=== PATIENT | female | born 2000 | race Caucasian/White ===

== ENCOUNTER → 2023-09-14 | Outpatient (CLI) | payer MEDICAID ==
--- NOTE | 2023-09-15 14:43 | US ---
EXAMINATION TYPE: US OB anatomy transabd DATE OF EXAM: 09/14/2023 COMPARISON: NONE CLINICAL INDICATION: Female, 23 years old with history of O36.62X0 MATERNAL CARE FOR EXCESS WINSOME WTH, SE; LGA TECHNIQUE: Transabdominal (TA) EXAM MEASUREMENTS: GESTATIONAL AGE / DATING Physician Established: (18 weeks/6 days) EDC: 02/09/24 Dates by LMP: LMP unknown Dates by First Scan: no prior here Dates by Current Scan for: (18 weeks/5 days) EDC: 02/10/24 SURVEY IUP: Single PLACENTA: Posterior PREVIA: No previa HARI: 12.2 cm Normal CERVICAL LENGTH (transabdominal: norm > 3.0cm): 4.6 cm BIOMETRY PRESENTATION: Breech LIE: Longitudinal BPD: 3.9 cm 18 weeks / 0 days HC: 15.2 cm 18 weeks / 2 days AC: 13.6 cm 19 weeks / 1 days FL: 3.0 cm 19 weeks / 2 days ESTIMATED WEIGHT IN GRAMS: 269 grams ESTIMATED WEIGHT IN LBS/OZ: 0 lbs. 9 oz. WEIGHT PERCENTAGE BASED ON ESTABLISHED DATE: 55 % HC/AC: 1.12 Normal FL/AC: 22% HEART RATE: 134 bpm RHYTHM: Normal ANATOMY SEEN (within normal limits): Cisterna Magna (< 1.1 cm) 0.3 cm Nuchal Fold (< 0.6 cm) 0.3 cm Cerebellum (varies with age) 1.7 cm Choroid Plexus (bilateral) Midline Falx Cavus Septi Pellucidi Outflow tracts: RVOT Stomach Situs Nose / Lips Diaphragm Kidneys (bilateral) Bladder Cord Insert Three Vessel Cord Longitudinal Spine Transverse Spine Arms (bilateral) Legs (bilateral) ANATOMY SUBOPTIMAL Outflow tracts: LVOT Lateral Vent (< 1 cm) 0.6 cm (measured anteriorly) ANATOMY ABNORMAL Four Chamber Heart - A couple echogenic intracardiac foci are noted. IMPRESSION: 1. Single live intrauterine with established gestational age of 18 weeks 6 days. Current ul trasound biometry is concordant (18 weeks 5 days) placing the child at the 55th percentile for weight . 2. A couple structures on the survey were suboptimally visualized including the LVOT and latera l ventricle. Recommend rescan in 1 to 2 weeks. 3. In addition, cardiac EIF are noted. These can be a soft marker for aneuploidy. Consider genetics consultation for a discussion of the questionable clinical significance, especially as an isolated fi nding.
== END | disposition home or self-care (01) ==
LOC: RADUSWWP 12:05
PROVIDERS: ATTEND Obstetrics & Gynecology
DX: O36.62X0 Maternal care for excessive fetal growth, second trimester, not applicable or unspecified (principal); Z3A.19 19 weeks gestation of pregnancy
CPT/HCPCS: 76811

== ENCOUNTER → 2024-01-11 | Outpatient (CLI) | payer MEDICAID ==
--- NOTE | 2024-01-11 13:20 | US ---
EXAMINATION TYPE: US OB >= 14 wk fetus DATE OF EXAM: 01/11/2024 COMPARISON: None CLINICAL INDICATION: Female, 23 years old with history of O36.5930 MATERN CARE FOR OTH OR SUSP POOR F ETL GRT; position TECHNIQUE: Transabdominal (TA) GESTATIONAL AGE / DATING Physician Established: (35 weeks/6 days) EDC: 02/09/24 Dates by LMP: LMP unknown Dates by First Scan: (35 weeks/5 days) EDC: 02/10/24 Dates by Current Scan: (36 weeks/1 days) EDC: 02/09/24 Beta HCG (if available): Not available at this time SURVEY IUP: Single PLACENTA: Posterior PREVIA: No Previa HARI: 11.0 cm Normal CERVICAL LENGTH (transabdominal: norm > 3.0cm): 3.4 cm BIOMETRY PRESENTATION: Vertex LIE: Longitudinal BPD: 8.8 cm 35 weeks / 4 days HC: 33.0 cm 37 weeks / 4 days AC: 32.0 cm 36 weeks / 0 days FL: 6.8 cm 35 weeks / 1 days ESTIMATED WEIGHT IN GRAMS: 2776 grams ESTIMATED WEIGHT IN LBS/OZ: 6 lbs. 2 oz. WEIGHT PERCENTAGE BASED ON ESTABLISHED DATES: 49% HC/AC: 1.03 Normal FL/AC: 21 Normal HEART RATE: 146 bpm RHYTHM: Normal cervix eval limited by low lying head IMPRESSION: Ultrasound age 36 weeks and 1 day. Additional information as described above.
== END | disposition home or self-care (01) ==
LOC: RADUSWWP 12:21
PROVIDERS: ATTEND Obstetrics & Gynecology
DX: O36.5930 Maternal care for other known or suspected poor fetal growth, third trimester, not applicable or unspecified (principal); Z3A.37 37 weeks gestation of pregnancy
CPT/HCPCS: 76805

== ENCOUNTER 2024-01-25 11:26 | Outpatient (CLI) | payer MEDICAID ==
[2024-01-25 12:07] LABS: Creatinine,Urine Random 28.9 mg/dL; Protein/Creatinine Ratio,Urine 0.381
[2024-01-25 12:50] LABS: Basophils % (A) 0 %; Eosinophils # (A) 0.1 k/uL (0-0.7); Eosinophils % (A) 1 %; HCT 33.8 % (34.0-46.0); HGB 11.1 gm/dL (11.4-16.0); Lymphocytes # (A) 1.6 k/uL (1.0-4.8); Lymphocytes % (A) 16 %; MCH 30.5 pg (25.0-35.0); MCHC 32.8 g/dL (31.0-37.0); MCV 93.1 fL (80.0-100.0); Mean Platelet Volume 9.6; Monocytes # (A) 0.6 k/uL (0-1.0); Monocytes % (A) 6 %; Neutrophils # (A) 7.5 k/uL (1.3-7.7); Neutrophils % (A) 75 %; Platelet Count 188 k/uL (150-450); RBC 3.63 m/uL (3.80-5.40); RDW 13.5 % (11.5-15.5); WBC 9.9 k/uL (3.8-10.6)
[2024-01-25 13:14] LABS: ALT 13 U/L (4-34); AST 21 U/L (14-36); African American GFR (CKD) >90 (>60 ml/min/1.73 sqM); Blood Urea Nitrogen 4 mg/dL (7-17); Non-African American GFR(CKD) >90 (>60 ml/min/1.73 sqM)
[2024-01-25 13:26] LABS: Uric Acid 3.9 mg/dL (3.7-7.4)
[2024-01-25 14:20] VITALS: BP 130/75; PULSE 106; RESP 18; TEMP 97.3
--- NOTE | 2024-01-28 16:52 | P.MSEPDOC ---
Presenting Problems - Arrival Data Date of Arrival on Unit: 01/25/24 Time of Arrival on Unit: 11:26 Mode of Transport: Ambulatory - Complaint OB-Reason for Admission/Chief Complaint: PIH Comment: sent over from office with written orders for PIH work up. Medical History - Information : 2 Para: 0 Term: 0 : 0 Abortions: Spontaneous or Elective: 1 Number of Living Children: 0 - Gestational Age Gestational Age by JESSICA (wks/days): 37 Weeks and 6 Days Review of Systems - Review of Systems Constitutional: No problems Breast: No problems ENT: No problems Cardiovascular: No problems Respiratory: No problems Gastrointestinal: No problems Genitourinary: No problems Musculoskeletal: No problems Neurological: No problems Skin: No problems Vital Signs - Temperature Temperature: 97.3 F Temperature Source: Temporal Artery Scan - Pulse Right Pulse Oximetery Pulse Rate: 106 Pulse Assessment Method: Pulse Oximetry - Respirations Respiratory Rate: 18 Oxygen Delivery Method: Room Air O2 Sat by Pulse Oximetry: 100 - Blood Pressure Right Arm Blood Pressure: 130/75 Blood Pressure Mean: 93 Blood Pressure Source: Automatic Cuff Medical Screen Scoring - Uterine Contractions Intensity: Mild Resting: Soft to palpation - Assessment - Baby A Baseline FHR: 135 Heart Rate - NICHD Category: Category I (Normal) NST: Reactive Physician Notification - Physician Notified Physician Notified Date: 01/25/24 Physician Notified Time: 13:28 Physician: Bhavna Blanco Order Received: Yes (Discharge home with follow up instructions.) Maternal Triage Index - Maternal Triage Index Presenting for scheduled procedure w/no complaint: No - Stat/Priority 1 Stat Priority 1: No - Urgent/Priority 2 Urgent Priority 2: No - Prompt/Priority 3 Prompt Priority 3: No - Non-Urgent/Priority 4 Non-Urgent Priority 4: Yes Criteria Met for Priority 4: sent over from office with written orders for PIH work up, with pt c/o RITCHIE and generalizes abd pain. Disposition - Disposition OB Disposition: Discharge to home Discharge Date: 01/25/24 Discharge Time: 13:28 I agree with the RN Medical Screening Exam: Yes Case reviewed; plan agreed upon as documented in EMR&OBIX.: Yes Diagnosis: HEADACHE, UNSPECIFIED
== END 2024-01-25 13:36 | disposition home or self-care (01) ==
LOC: FBPOP 11:26
PROVIDERS: ATTEND Obstetrics & Gynecology
DX: O13.9 Gestational [pregnancy-induced] hypertension without significant proteinuria, unspecified trimester (principal); R51.9 Headache, unspecified; Z3A.37 37 weeks gestation of pregnancy; Z88.1 Allergy status to other antibiotic agents; Z88.7 Allergy status to serum and vaccine
CPT/HCPCS: 59025; 82565; 82570; 84156; 84450; 84460; 84520; 84550; 85025

== ENCOUNTER 2024-02-14 23:50 | Inpatient (IN) | payer MEDICAID ==
[2024-02-15] MEDS: LACTATED RINGERS 1,000 ML IV SCH (03:30)
[2024-02-15] MEDS ORDERED: TRANEXAMIC 1,000 MG/100ML-NACL 1,000 MG in EMPTY BAG 1 BAG IV PRN (03:39)
[2024-02-15] MEDS ORDERED: miSOPROStoL 200 MCG TAB PO PRN (03:39)
[2024-02-15] MEDS ORDERED: OXYTOCIN 10 UNIT/ML 1 ML VIAL IM PRN (03:39)
[2024-02-15] MEDS ORDERED: CARBOPROST TROMETHAMINE 250 MCG/ML 1 ML AMP IM PRN (03:39)
[2024-02-15] MEDS ORDERED: TERBUTALINE 1 MG/ML VIAL SQ PRN (03:39)
[2024-02-15] MEDS ORDERED: METHYLERGONOVINE 0.2 MG/ML 1 ML AMP IM PRN (03:39)
[2024-02-15 04:37] LABS: Basophils % (A) 0 %; Eosinophils # (A) 0.1 k/uL (0-0.7); Eosinophils % (A) 0 %; HCT 34.7 % (34.0-46.0); HGB 11.2 gm/dL (11.4-16.0); Lymphocytes # (A) 1.6 k/uL (1.0-4.8); Lymphocytes % (A) 11 %; MCH 29.6 pg (25.0-35.0); MCHC 32.3 g/dL (31.0-37.0); MCV 91.4 fL (80.0-100.0); Mean Platelet Volume 10.1; Monocytes # (A) 0.7 k/uL (0-1.0); Monocytes % (A) 5 %; Neutrophils # (A) 12.5 k/uL (1.3-7.7); Neutrophils % (A) 83 %; Platelet Count 166 k/uL (150-450); RBC 3.79 m/uL (3.80-5.40); RDW 13.6 % (11.5-15.5); WBC 15.1 k/uL (3.8-10.6)
[2024-02-15] MEDS ORDERED: SODIUM CHLORIDE 0.9% 250 ML BAG ONE (04:50)
[2024-02-15] MEDS ORDERED: ROPIVACAINE 5 MG/ML 30 ML VIAL ONE (04:50)
[2024-02-15] MEDS ORDERED: fentaNYL (PF) 50 MCG/ML 5 ML AMP ONE (04:50)
[2024-02-15] MEDS: OXYTOCIN 30 UNITS/500 ML NS 30 UNIT in SALINE 1 500ML.BAG IV SCH (10:48)
[2024-02-15] MEDS: IBUPROFEN 600 MG TAB PO PRN (11:30)
[2024-02-15] MEDS ORDERED: ACETAMINOPHEN TAB 325 MG TAB PO PRN (11:46)
[2024-02-15] MEDS ORDERED: BENZOCAINE/MENTHOL SPRAY 1 GM/SPRAY AEROSOL TOPICAL PRN (11:46)
[2024-02-15] MEDS ORDERED: HYDROCORTISONE 2.5% RECTAL CREAM 30 GM TUBE RECTAL PRN (11:46)
[2024-02-15] MEDS ORDERED: diphenhydrAMINE 25 MG CAP PO PRN (11:46)
[2024-02-15] MEDS ORDERED: ZOLPIDEM 5 MG TAB PO PRN (11:46)
[2024-02-15] MEDS ORDERED: diphenhydrAMINE 50 MG CAP PO PRN (11:46)
[2024-02-15] MEDS ORDERED: LANOLIN CREAM 1 GM TUBE TOPICAL PRN (11:46)
[2024-02-15] MEDS ORDERED: SIMETHICONE 80 MG CHEWABLE PO PRN (11:46)
[2024-02-15] MEDS ORDERED: diphenhydrAMINE 50 MG/ML 1 ML VIAL IVP PRN ×2 (11:46)
[2024-02-15] MEDS: LIDOCAINE 0.5% (PF) 5 MG/ML (50 ML SDV) SQ PRN (11:50)
[2024-02-15] MEDS: SENNOSIDES-DOCUSATE SODIUM 1 EACH TAB PO SCH (20:44)
[2024-02-16 00:58] VITALS: RESP 16
[2024-02-16 09:09] VITALS: BP 118/75; PULSE 86; TEMP 97.9
--- NOTE | 2024-02-16 09:29 | P.DS ---
Providers Date of admission: 02/15/24 02:47 Expected date of discharge: 02/16/24 Attending physician: Bhavna Blanco Primary care physician: Stated None - Discharge Diagnosis(es) (1) Post-dates Current Visit: Yes Status: Acute (2) Active labor Current Visit: Yes Status: Acute (3) Status post vaginal delivery Current Visit: Yes Status: Acute (4) Obstetrical laceration, second degree Current Visit: Yes Status: Acute Hospital Course: This is a 23-year-old 2 now para 1-0-1-1 that presented to labor and delivery at 40-6/7 weeks with complaints of regular painful contractions. Patient was admitted to labor and delivery. Amniotomy was performed around 8 AM revealing clear fluid. Patient did request epidural placement which was placed without difficulty by the anesthesia department. Patient progressed through labor, patient was noted to be completely dilated. Once complete dilation was achieved she began pushing. Patient had a normal spontaneous vaginal delivery of a viable female infant at 1046, weight of 7 pounds 12 ounces, Apgars of 8 and 8 at 1 and 5 minutes respectively. Patient did sustain a second-degree lac eration during delivery which was repaired in the usual fashion. Patient's course has been uneventful. On this day #1 she is ambulating and voiding without difficulty. She is tolerating a regular diet without nausea or vomiting. She states her pain is well-controlled. She would like discharge home at 24 hours. Patient Condition at Discharge: Good Plan - Discharge Summary New Discharge Prescriptions: No Action Vit No.179/Iron/Folic [ Tablet] 1 each PO HS Iron 18 mg PO HS Discharge Medication List Iron 18 mg PO HS 01/25/24 [History] Vit No.179/Iron/Folic [ Tablet] 1 each PO HS 01/25/24 [History] Follow up Appointment(s)/Referral(s): Bhavna Blanco DO [Doctor of Osteopathic Medicine] - 04/07/24 2:15 pm Patient Instructions/Handouts: Vaginal Delivery (DC), Vaginal Delivery (GEN) Activity/Diet/Wound Care/Special Instructions: No intercourse, tub baths. No heavy lifting greater than a gallon of milk. No driving for two weeks. Call with any fever, shakes or chills, with any pain not alleviated by over the counter meds, or with any quesions or concerns. [id number] ibuprofen 600 mg or 3 tablets every 6 hours as needed for pain. Discharge Disposition: HOME SELF-CARE
--- NOTE | 2024-02-18 09:40 | P.HPOB ---
History of Present Illness H&P Date: 02/15/24 Chief Complaint: active labor 23-year-old presents at 40 weeks and 6 days in active labor. Her cervix is 5-6 centers dilated 80% effaced, -2 station. She is speedy irregularly. heart tones 135 with moderate variability and reactive. Review of Systems All systems: negative Constitutional: Denies chills, Denies fever Eyes: denies blurred vision, denies pain Ears, nose, mouth and throat: Denies headache, Denies sore throat Cardiovascular: Denies chest pain, Denies shortness of breath Respiratory: Denies cough Gastrointestinal: Denies abdominal pain, Denies diarrhea, Denies nausea, Denies vomiting Genitourinary: Denies dysuria, Denies hematuria Musculoskeletal: Denies myalgias Integumentary: Denies pruritus, Denies rash Neurological: Denies numbness, Denies weakness Psychiatric: Denies anxiety, Denies depression Endocrine: Denies fatigue, Denies weight change Past Medical History Additional Past Medical History / Comment(s): tubes in ears as a child History of Any Multi-Drug Resistant Organisms: None Reported Past Anesthesia/Blood Transfusion Reactions: No Reported Reaction Smoking Status: Never smoker Medications and Allergies Home Medications Medication Instructions Recorded Confirmed Type Iron 18 mg PO HS 01/25/24 02/15/24 History Vit No.179/Iron/Folic 1 each PO HS 01/25/24 02/15/24 History [ Tablet] Allergies Allergy/AdvReac Type Severity Reaction Status Date / Time guaifenesin [From Mucinex] Allergy Hallucinati Verified 01/25/24 11:33 ons Pertussis Vaccines Allergy Swelling Verified 01/25/24 11:33 Exam Osteopathic Statement: *. No significant issues noted on an osteopathic structural exam other than those noted in the History and Physical/Consult. Heart: Regular rate and rhythm Lungs: Clear to auscultation bilaterally Abdomen: Soft, nontender Extremities: Negative Homans sign Results Result Diagrams: 02/15/24 03:30 Assessment and Plan (1) Active labor Status: Acute Code(s): [id number] - SNOMED Code(s): 057481633 Plan: 1. Admit to family place 2. Expectant management 3. Anticipate normal vaginal delivery
--- NOTE | 2024-02-18 09:41 | P.PROBDLV ---
Vaginal Delivery Note - . Vaginal Delivery Note: 23-year-old presents at 40 weeks and 6 days in active labor. Her cervix is 5-6 centers dilated 80% effaced, -2 station. She is speedy irregularly. heart tones 135 with moderate variability and reactive.Amniotomy performed at 8 AM and clear fluid noted. She was 8-9 cm at this time. Her cervix was completely dilated at 10:10 AM. She pushed, delivered a viable female infant over intact perineum under epidural anesthesia at 10:46 AM. Head delivered OA, anterior shoulder delivered gentle downward guidance of the posterior shoulder and rest of body. Nose and mouth bulb suctioned, cord clamped and cut, infant placed on mother's abdomen. Apgars 8, 8, weight 7 lbs. 12 oz. Placenta delivered spontaneously, intact with three-vessel cord at 10:48 AM. Vagina, cervix and perineum was inspected. Second-degree midline laceration was repaired with 3-0 Vicryl. Estimated blood loss 204 mL. Mother and baby in stable condition.
== END 2024-02-16 12:30 | disposition home or self-care (01) | DRG 807 ==
LOC: FBPOP 23:50 → 4FBP 02-15 02:47
PROVIDERS: ADMIT Obstetrics & Gynecology; ATTEND Obstetrics & Gynecology
PROC: 10E0XZZ Delivery of Products of Conception, External Approach (ICD-10-PCS; principal; 2024-02-15)
PROC: 0KQM0ZZ Repair Perineum Muscle, Open Approach (ICD-10-PCS; 2024-02-15)
DX: O48.0 Post-term pregnancy (principal); Z37.0 Single live birth; O70.1 Second degree perineal laceration during delivery; Z3A.40 40 weeks gestation of pregnancy
CPT/HCPCS: 59025; 84112; 85025; 86850; 86900; 86901; 99213